=== PATIENT | female | born 1985 | race Caucasian/White ===

== ENCOUNTER 2016-08-30 19:06 | Emergency (ER) | payer SELFPAY ==
--- NOTE | 2016-08-30 20:10 | ED.PDOC ---
History of Present Illness - General Chief Complaint: Lower Extremity Injury Stated Complaint: rt foot ankle Time Seen by Provider: 08/30/16 19:23 Source: patient Exam Limitations: no limitations - History of Present Illness Initial Comments: She stated was roughhousing with brother and twisted right ankle then noticed swelling/pain right ankle with pain on weight bearing. Occurred: just prior to arrival Pain - Lower Extremity: moderate: Right Ankle Method of Injury: twisted Improving Factors: immobilization Worsening Factors: movement Allergies/Adverse Reactions: Allergies NO KNOWN ALLERGY Allergy (Verified 08/30/16 19:23) Home Medications: Ambulatory Orders Amoxicillin & Pot Clavulanate [Augmentin] 875 mg PO BID #20 tab 03/14/16 Tramadol HCl 100 mg PO Q6HRS #30 tab 08/30/16 Review of Systems - Review of Systems Constitutional: States: no symptoms reported EENTM: States: no symptoms reported Respiratory: States: no symptoms reported Cardiology: States: no symptoms reported Gastrointestinal/Abdominal: States: no symptoms reported Genitourinary: States: no symptoms reported Musculoskeletal: States: joint pain, joint swelling - right ankle Skin: States: no symptoms reported Neurological: States: no symptoms reported Endocrine: States: no symptoms reported Hematologic/Lymphatic: States: no symptoms reported Past Medical History (General) - Patient Medical History Hx Congestive Heart Failure: No Hx Diabetes: No Surgical History: no surgical history - Vaccination History Hx Tetanus, Diphtheria Vaccination: No Hx Influenza Vaccination: No Hx Pneumococcal Vaccination: No Immunizations Up to Date: No - Social History Hx Tobacco Use: Yes Hx Alcohol Use: Yes Hx Substance Use: No Hx Substance Use Treatment: No Hx Depression: No Family Medical History - Family History Mother Family History: No Known Living Status: Unknown Physical Exam - Physical Exam General Appearance: Alert, Comfortable, No apparent distress Eyes, Ears, Nose, Throat: PERRL/EOMI, normal ENT inspection Neck: non-tender, full range of motion, supple Cardiovascular/Respiratory: regular rate, rhythm, no M/R/G, normal peripheral pulses, no JVD, normal breath sounds, no respiratory distress Gastrointestinal/Abdominal: non-tender, no organomegaly Back: normal inspection, no CVA tenderness, no vertebral tenderness Thigh/Hip: normal inspection, non-tender, no evidence of injury Leg: non-tender, no evidence of injury Knee: non-tender, no evidence of injury Ankle: limited ROM - right ankle, soft tissue tenderness, swelling Foot: normal inspection, non-tender, no evidence of injury Neuro/Tendon: normal sensation, normal motor functions, normal tendon functions Mental Status: alert, oriented x 3 Skin: normal color, warm/dry Progress - EKG/XRAY/CT XRAY: ankle - fracture fibula right Procedures - Splinting Right Leg Hand-Made Type: fiberglass Splint: posterior walking Pre-Proc Neuro Vasc Exam: normal Post-Proc Neuro Vasc Exam: normal Departure - Departure Clinical Impression: Fracture of fibula, distal, closed Time of Disposition: 20:47 Disposition: Discharge to Home or Self Care Condition: Good Departure Forms: ED Discharge - Pt. Copy, Patient Portal Self Enrollment Instructions: DI for Ankle Fracture Referrals: Edwin Soto MD [Primary Care Provider] - 1-2 Weeks Prescriptions: Tramadol HCl 100 mg PO Q6HRS #30 tab Home Medications: Ambulatory Orders Amoxicillin & Pot Clavulanate [Augmentin] 875 mg PO BID #20 tab 03/14/16 Tramadol HCl 100 mg PO Q6HRS #30 tab 08/30/16 Additional Instructions: EXCUSE FROM WORK 08/31- has fractured right ankle;FOLLOW UP WITH ORTHOPEDIST 09/01/2016 patient to call for appointment
[2016-08-30] MEDS ORDERED: KETOROLAC TROMETHAMINE INJ 30 MG/ML VIAL IM ONE (20:45)
[2016-08-30] MEDS ORDERED: HYDROCOD/APAP 7.5/325 (ER DISP) #3 TAB PO ONE (20:46)
[2016-08-30] MEDS ORDERED: KETOROLAC TROMETHAMINE INJ 60 MG/2 ML VIAL IM ONE (20:47)
[2016-08-30 21:34] VITALS: BP 124/76; TEMP 98.4; O2SAT 98
--- NOTE | 2016-09-08 00:21 | RAD ---
EXAM DESCRIPTION: Ankle, right 3 Views CLINICAL HISTORY: 31 years, Female, pain, swelling COMPARISON: None. FINDINGS: Three views the RIGHT ankle were performed. An oblique comminuted fracture passes through the distal RIGHT fibular diaphysis and metaphysis extending slightly below the level of the ankle joint. The distal aspect of the fibula is displaced 2 mm laterally in comparison with the remainder of the fibula. The ankle mortise is congruent and the talar dome is intact. Large ankle effusion is suspected. No additional fracture is seen. IMPRESSION: Comminuted minimally displaced fracture through the distal RIGHT fibula with large ankle effusion. Electronically signed by: Pallavi Muro MD 08/30/2016 8:08 PM TERRITORY ACCOUNT EXECUTIVE
== END 2016-08-30 21:33 | disposition home or self-care (01) ==
LOC: ER 19:06
DX: S82.831A Other fracture of upper and lower end of right fibula, initial encounter for closed fracture (principal); Z87.891 Personal history of nicotine dependence; X50.1XXA Overexertion from prolonged static or awkward postures, initial encounter; Y93.83 Activity, rough housing and horseplay
CPT/HCPCS: 73610; J1885

== ENCOUNTER → 2016-09-02 | Outpatient (CLI) | payer SELFPAY ==
--- NOTE | 2016-09-02 14:49 | RAD ---
Three views right ankle Reference: August 30, 2016 IMPRESSION: The obliquely oriented distal fibular fracture is again noted. The fracture fragments are in stable alignment. The syndesmosis is slightly widened. Ankle mortise is intact. Subtle callus formation is noted compatible with healing. Electronically signed by: Blayne Bradley MD 09/02/2016 2:48 PM DEVOPS CONSULTANT
--- NOTE | 2016-09-08 00:32 | RAD ---
Three views right ankle Reference: August 30, 2016 IMPRESSION: The obliquely oriented distal fibular fracture is again noted. The fracture fragments are in stable alignment. The syndesmosis is slightly widened. Ankle mortise is intact. Subtle callus formation is noted compatible with healing. Electronically signed by: Blayne Bradley MD 09/02/2016 2:48 PM PARTS IDENTIFIER
== END | disposition home or self-care (01) ==
LOC: RAD 07:26
PROVIDERS: ATTEND Orthopaedic Surgery
DX: M25.571 Pain in right ankle and joints of right foot (principal)

== ENCOUNTER → 2016-09-11 | Outpatient (CLI) | payer SELFPAY ==
--- NOTE | 2016-09-11 12:27 | RAD ---
Study: Three views of the Right Ankle. Indication: CLOSED FX OF ANKLE Comparison: September 02, 2016. Impression: Stable alignment distal fibular fracture which remains ununited without significant new callus formation when compared to the prior. No new fracture. Casting material present. Electronically signed by: Rigo Bui MD 09/11/2016 12:26 PM NECK FITTER
== END | disposition home or self-care (01) ==
LOC: RAD 08:07
PROVIDERS: ATTEND Orthopaedic Surgery
DX: S82.91XD Unspecified fracture of right lower leg, subsequent encounter for closed fracture with routine healing (principal)

== ENCOUNTER → 2016-09-19 | Outpatient (CLI) | payer SELFPAY ==
--- NOTE | 2016-09-19 09:05 | RAD ---
EXAM DESCRIPTION: Ankle,Right 3 Views CLINICAL HISTORY: 31 yearsFemale, CLOSED FX OF ANKLE COMPARISON: 09/11/2016 IMPRESSION: Casting material overlying fracture site. When compared to the prior study there is once again obliquely oriented fracture through the distal fibula. Soft tissue swelling has decreased minimally when compared to prior. The ankle mortise and syndesmosis are stable and unremarkable. Fracture is in good alignment. Electronically signed by: Blayne Bradley MD 09/19/2016 9:04 AM REFERENCE LIBRARY ASSISTANT
== END | disposition home or self-care (01) ==
LOC: RAD 07:34
PROVIDERS: ATTEND Orthopaedic Surgery
DX: S82.91XD Unspecified fracture of right lower leg, subsequent encounter for closed fracture with routine healing (principal)

== ENCOUNTER → 2016-10-10 | Outpatient (CLI) | payer SELFPAY ==
--- NOTE | 2016-10-10 17:18 | RAD ---
EXAM DESCRIPTION: Ankle,Right 3 Views CLINICAL HISTORY: 31 years,Female,CLOSED FX COMPARISON: August 14, 2016 and September 19, 2016 FINDINGS: The right ankle demonstrates oblique fracture to the distal right fibula down to the level of the plafond. With minimal displacement. No change in the displacement since prior study and there are multiple interval studies with overlying cast so cannot see the fracture well in those studies. But I do not see much bridging or blurring of the fracture line since the initial study. Ankle mortise and talar dome unremarkable. Soft tissues are unremarkable. Joint effusion IMPRESSION: Removal of cast from a right distal fibular oblique fracture. There is minimal displacement of fracture but no change in displacement since any of the prior studies. But no significant loss of the fracture line or callus formation. [] Electronically signed by: Patrick Yeboah MD 10/10/2016 5:17 PM CDT
== END | disposition home or self-care (01) ==
LOC: RAD 08:26
PROVIDERS: ATTEND Orthopaedic Surgery
DX: S82.91XD Unspecified fracture of right lower leg, subsequent encounter for closed fracture with routine healing (principal)

== ENCOUNTER → 2016-10-24 | Outpatient (CLI) | payer SELFPAY ==
--- NOTE | 2016-10-25 06:20 | RAD ---
Procedure: 3 View right Ankle Exam date: 10/24/2016 12:00 AM CDT Ordering: TUTU PRATT Clinical Indication: CLOSED FX OF RT ANKLE Comparison: 10/10/2016 FINDINGS: Minimal interval callus formation or healing of the distal fibular fracture. Diffuse disuse osteopenia noted in the foot. No new fractures or subluxations seen. Persistent tibiotalar joint effusion. IMPRESSION: Minimal interval healing of Edwards type B right ankle fracture. No new fracture or subluxation. Electronically signed by: Ky Chaney MD 10/25/2016 6:19 AM CDT
== END | disposition home or self-care (01) ==
LOC: RAD 07:42
PROVIDERS: ATTEND Orthopaedic Surgery
DX: S82.91XD Unspecified fracture of right lower leg, subsequent encounter for closed fracture with routine healing (principal)

== ENCOUNTER → 2016-11-28 | Outpatient (CLI) | payer SELFPAY ==
--- NOTE | 2016-11-28 14:56 | RAD ---
EXAM DESCRIPTION: Ankle,Right 3 Views CLINICAL HISTORY: 31 years, Female, FRACTURE COMPARISON: October 24 and earlier FINDINGS: Stable alignment of oblique fracture lower fibula. No definite interval radiographic healing. Bones demineralized. IMPRESSION: Stable alignment lower fibula fracture with minimal, if any, radiographic healing Electronically signed by: Monty Morse MD 11/28/2016 2:55 PM CDT
--- NOTE | 2016-11-28 14:59 | RAD ---
EXAM DESCRIPTION: Foot,Right 3 Views CLINICAL HISTORY: 31 years, Female, PAIN COMPARISON: None. FINDINGS: No fracture or dislocation. 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 No definite soft tissue abnormalities. IMPRESSION: Demineralized bones without definite fracture or dislocation Electronically signed by: Monty Morse MD 11/28/2016 2:58 PM CDT
== END | disposition home or self-care (01) ==
LOC: RAD 08:07
PROVIDERS: ATTEND Orthopaedic Surgery
DX: S82.91XD Unspecified fracture of right lower leg, subsequent encounter for closed fracture with routine healing (principal); M79.671 Pain in right foot; X58.XXXA Exposure to other specified factors, initial encounter